=== PATIENT | male | born 1995 | race Caucasian/White ===

== ENCOUNTER 2017-11-26 14:25 | Observation (INO) | payer OTHER ==
[~2017-11-26] VITALS: Ht 185.4 cm; Wt 118.0 kg
[2017-11-26 14:26] VITALS: BP 157/90; PULSE 82; RESP 18; TEMP 98.8; O2SAT 98
[2017-11-26] MEDS ORDERED: IOHEXOL 350 MG/ML 10 ML VIAL (for RAD DIAG) IVCONTRAST ONE (14:26)
[2017-11-26 16:07] LABS: AUTOMATED NEUTROPHIL # 4.3 TH/MM3 (1.8-7.7); BASOPHIL % 0.3 % (0.0-2.0); EOSINOPHIL # 0.3 TH/MM3 (0-0.4); EOSINOPHIL % 3.6 % (0.0-4.0); HEMATOCRIT 47.6 % (39.0-51.0); HEMOGLOBIN 16.8 GM/DL (13.0-17.0); LYMPH % 31.4 % (9.0-44.0); LYMPHOCYTE # 2.5 TH/MM3 (1.0-4.8); MEAN CELL VOLUME 87.7 FL (80.0-100.0); MEAN CORPUSCULAR HGB CONC 35.3 % (32.0-36.0); MEAN PLATELET VOLUME 9.1 FL (7.0-11.0); MONO % 10.3 % (0.0-8.0); MONOCYTE # 0.8 TH/MM3 (0-0.9); NEUT % 54.4 % (16.0-70.0); PLATELET COUNT 238 TH/MM3 (150-450); RED BLOOD COUNT 5.42 MIL/MM3 (4.50-5.90); RED CELL DISTRIBUTION WIDTH 13.2 % (11.6-17.2)
[2017-11-26 16:26] LABS: ALBUMIN 4.3 GM/DL (3.4-5.0); AST (GOT) 30 U/L (15-39); BICARBONATE 25.5 MEQ/L (21.0-32.0); BLOOD UREA NITROGEN 9 MG/DL (7-18); CALCIUM 9.1 MG/DL (8.5-10.1); CHLORIDE 106 MEQ/L (98-107); CREATININE 0.72 MG/DL (0.60-1.30); GLOMERULAR FILTRATION RATE 141 ML/MIN (>89); GLUCOSE,RANDOM 83 MG/DL (74-106); SODIUM (NA) 138 MEQ/L (136-145)
[2017-11-26 16:29] LABS: ALKALINE PHOSPHATASE 74 U/L (45-117); ALT (GPT) 56 U/L (9-52); TOTAL BILIRUBIN ADULT 0.6 MG/DL (0.2-1.0); TOTAL PROTEIN 8.5 GM/DL (6.4-8.2)
[2017-11-26 16:52] VITALS: BP 128/77; PULSE 83; RESP 17; TEMP 98.6; O2SAT 100
--- NOTE | 2017-11-26 17:20 | PD ---
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 Patient states symptoms started Kvng night and have progressively worsened every day. Pain is constant. Worse with deep inspiration and when he pushes on it. Also worse with certain range of motion. No change with eating. He has not taken anything for symptoms. Patient went to his school clinic and they were concerned for appendicitis so they sent him to the ED. He denies cough, shortness of breath, chest pain, fever, chills, nausea, vomiting, or diarrhea. Denies any chronic medical conditions or daily medications. Denies excessive alcohol use. Denies urinary symptoms. No family history of inflammatory bowel disease. PFSH Past Medical History Diminished Hearing: No Tetanus Vaccination: < 5 Years ?: Not Past Surgical History Other Surgery: Yes (Gastroschisis AT ) Social History Alcohol Use: No Tobacco Use: No (OCCASIONAL CIGAR) Substance Use: No Allergies-Medications (Allergen,Severity, Reaction): Coded Allergies: No Known Allergies (Unverified , 11/26/17) Reported Meds & Prescriptions Reported Meds & Active Scripts Active No Active Prescriptions or Reported Medications Review of Systems Except as stated in HPI: all other systems reviewed are Neg Physical Exam Narrative GENERAL: Well-nourished, well-developed male in no acute distress. Afebrile. Ambulatory. SKIN: Focused skin assessment warm/dry. HEAD: Normocephalic. EYES: No scleral icterus. No injection or drainage. NECK: Supple, trachea midline. No JVD or lymphadenopathy. CARDIOVASCULAR: Regular rate and rhythm without murmurs, gallops, or rubs. RESPIRATORY: Breath sounds equal bilaterally. No accessory muscle use. GASTROINTESTINAL: Abdomen soft, nondistended. Tenderness to palpation of the right upper quadrant and epigastric region. No left or right lower quadrant tenderness. No peritoneal signs or rebound tenderness. Data Data Last Documented VS Vital Signs Date Time Temp Pulse Resp B/P (MAP) Pulse Ox O2 Delivery O2 Flow Rate FiO2 11/26/17 18:59 80 16 121/69 (86) 100 Room Air 11/26/17 16:52 98.6 Orders Orders Complete Blood Count With Diff (11/26/17 14:37) Comprehensive Metabolic Panel (11/26/17 14:37) Lipase (11/26/17 14:37) Ct Abd/Pel W Iv Contrast(Rout) (11/26/17 ) Iohexol 350 Inj (Omnipaque 350 Inj) (11/26/17 14:26) Levofloxacin 750 Mg Premix Inj (Levaquin (11/26/17 19:00) Metronidazole 500 Mg Inj (Flagyl 500 Mg (11/26/17 19:00) Consult General Surgery (11/26/17 ) Admit Order (Ed Use Only) (11/26/17 19:14) Labs Laboratory Tests Test 11/26/17 15:30 White Blood Count 8.0 TH/MM3 Red Blood Count 5.42 MIL/MM3 Hemoglobin 16.8 GM/DL Hematocrit 47.6 % Mean Corpuscular Volume 87.7 FL Mean Corpuscular Hemoglobin 31.0 PG Mean Corpuscular Hemoglobin Concent 35.3 % Red Cell Distribution Width 13.2 % Platelet Count 238 TH/MM3 Mean Platelet Volume 9.1 FL Neutrophils (%) (Auto) 54.4 % Lymphocytes (%) (Auto) 31.4 % Monocytes (%) (Auto) 10.3 % Eosinophils (%) (Auto) 3.6 % Basophils (%) (Auto) 0.3 % Neutrophils # (Auto) 4.3 TH/MM3 Lymphocytes # (Auto) 2.5 TH/MM3 Monocytes # (Auto) 0.8 TH/MM3 Eosinophils # (Auto) 0.3 TH/MM3 Basophils # (Auto) 0.0 TH/MM3 CBC Comment DIFF FINAL Differential Comment Blood Urea Nitrogen 9 MG/DL Creatinine 0.72 MG/DL Random Glucose 83 MG/DL Total Protein 8.5 GM/DL Albumin 4.3 GM/DL Calcium Level 9.1 MG/DL Alkaline Phosphatase 74 U/L Aspartate Amino Transf (AST/SGOT) 30 U/L Alanine Aminotransferase (ALT/SGPT) 56 U/L Total Bilirubin 0.6 MG/DL Sodium Level 138 MEQ/L Potassium Level 4.2 MEQ/L Chloride Level 106 MEQ/L Carbon Dioxide Level 25.5 MEQ/L Anion Gap 7 MEQ/L Estimat Glomerular Filtration Rate 141 ML/MIN Lipase 131 U/L [facility] Medical Decision Making Medical Screen Exam Complete: Yes Emergency Medical Condition: Yes Medical Record Reviewed: Yes Differential Diagnosis Cholecystitis, gallstones, hernia, pneumothorax, pancreatitis Narrative Course 21-year-old otherwise healthy male with a 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 He has no associated fever, nausea, vomiting, or diarrhea. Patient is afebrile and well-appearing in the emergency room. He had tenderness to palpation of the epigastric and right upper quadrant region. No peritoneal signs. Abdomen soft. No rebound tenderness. IV access established basic labs obtained. CBC is unremarkable. CMP is unremarkable. CT the abdomen and pelvis shows possible microperforation of the small intestine or colon. I spoke to the general surgeon, Dr. Gomez, who recommends IV Flagyl and Levaquin. He will see the patient tonight. I spoke to Dr. Yu who agrees to admit this patient to Dr. Payan's service. Patient understands and agrees to plan. Diagnosis Primary Impression: Perforated bowel Admitting Information Admitting Physician Requests: Admit Scripts No Active Prescriptions or Reported Meds Condition: Stable Rosa Hammer Nov 26, 2017 17:20
--- NOTE | 2017-11-26 18:47 | RADRPT ---
EXAM DATE/TIME: 11/26/2017 18:15 [facility] COMPARISON: No previous studies available for comparison. INDICATIONS : Right upper region abdomen pain for three days. IV CONTRAST: 76 cc Omnipaque 350 (iohexol) IV ORAL CONTRAST: No oral contrast ingested. RADIATION DOSE: 9.52 CTDIvol (mGy) MEDICAL HISTORY : None SURGICAL HISTORY : None. ENCOUNTER: Initial ACUITY: 3 days PAIN SCALE: 7/10 LOCATION: Right upper quadrant TECHNIQUE: Volumetric scanning of the abdomen and pelvis was performed. Using automated exposure control and ad justment of the mA and/or kV according to patient size, radiation dose was kept as low as reasonably achievable to obtain optimal diagnostic quality images. DICOM format image data is available electro nically for review and comparison. FINDINGS: There is some focal inflammatory changes and a small collection of fluid and free intraperitoneal air within the right upper quadrant adjacent to the edge of the liver. There are several loops of small intestine as well as what appears to be right colon/hepatic flexure in the vicinity of this fluid and air. This raises possibility of focal microperforation of small intestine or colon. Duodenal perfora tion seems less likely as the collection of air in fluid is slightly away from the duodenum. The live r is enlarged and demonstrates mild diffuse fatty infiltration. No focal hepatic mass is noted. No bi liary ductal dilatation is noted gallbladder is unremarkable. The pancreas is normal. The spleen is n ormal. The kidneys enhance briskly in dimension no evidence of focal mass or hydronephrosis. The abdo sohan aorta and inferior vena cava are unremarkable. The urinary bladder is unremarkable. No abdomina l wall hernia is noted. Mild scoliosis of the thoracolumbar spine is noted. The visualized lung bases are clear. CONCLUSION: 1. Some focal inflammatory changes and a small collection of fluid and free intraperitoneal air withi n the right upper quadrant adjacent to the edge of the liver. There are several loops of small intest ine as well as what appears to be right colon/hepatic flexure in the vicinity of this fluid and air. This raises possibility of focal microperforation of small intestine or colon. Duodenal perforation s eems less likely as the collection of air in fluid is slightly away from the duodenum. 2. Hepatomegaly and mild fatty infiltration. Stef Tyler MD on November 26, 2017 at 18:27 Board Certified Radiologist. This report was verified electronically.
[2017-11-26 18:59] VITALS: BP 121/69; PULSE 80; RESP 16; O2SAT 100
[2017-11-26] MEDS ORDERED: LEVOFLOXACIN 750 MG PREMIX INJ 150 ML IV ONE (19:00)
[2017-11-26] MEDS ORDERED: metroNIDAZOLE 500 MG INJ 100 ML IV ONE (19:00)
[2017-11-26] MEDS ORDERED: DIATRIZOATE MEGLUM/DIATRIZOATE SOD 9 ML CUP PO ONE (20:16)
[2017-11-26] MEDS ORDERED: DIATRIZOATE MEGLUM/DIATRIZOATE SOD 9 ML CUP ONE (20:19)
--- NOTE | 2017-11-26 20:25 | PD.CONS ---
HPI Service General Surgery Consult Requested By Dr. 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 Today he had an episode of generalized abdominal pain. + nausea. He denies vomiting, fever, chills. He has no chronic abdominal pain. No h/o diarrhea. No family h/o inflammatory bowel disease. He has continued eating. He was seen in wellness clinic at [facility] where he is a student and sent here for evaluation. WBC is normal. CT a/p shows probable microperforation in RUQ. I reviewed images and discussed in person with Dr. Tyler. He appears to have majority of his small bowel in right abdomen and possibly he has malrotation or this may be just secondary to his gastroschisis. Review of Systems Constitutional: DENIES: Fever, Chills Eyes: DENIES: Eye inflammation, Eye pain Respiratory: DENIES: Cough, Wheezing Cardiovascular: DENIES: Chest pain, Palpitations Gastrointestinal: COMPLAINS OF: Abdominal pain, Nausea, DENIES: Diarrhea Genitourinary: DENIES: Hematuria, Dysuria Musculoskeletal: DENIES: Back pain, Neck pain Integumentary: DENIES: Pruritus, Rash Neurologic: DENIES: Seizures, Speech Problems Past Family Social History Past Medical History Gastroschisis Past Surgical History Repair of gastroschisis Reported Medications Reported Meds & Active Scripts Active No Active Prescriptions or Reported Medications Allergies: Coded Allergies: No Known Allergies (Unverified , 11/26/17) Active Ordered Medications Current Medications Medications (Trade) Dose Ordered Sig/Mile Route Start Time Stop Time Status Last Admin Levofloxacin/ Dextrose 150 ml @ 100 mls/hr ONCE ONCE IV 11/26/17 19:00 11/26/17 20:29 Family History Noncontributory Social History Occ smokes cigars. Occ ETOH use. Physical Exam Vital Signs Vital Signs Date Time Temp Pulse Resp B/P (MAP) Pulse Ox O2 Delivery O2 Flow Rate FiO2 11/26/17 18:59 80 16 121/69 (86) 100 Room Air 11/26/17 16:52 98.6 83 17 128/77 (94) 100 Room Air 11/26/17 14:26 98.8 82 18 157/90 (112) 98 Room Air Physical Exam GENERAL: Awake and alert. No acute distress. Cooperative. HEAD: Normocephalic. Atraumatic. EYES: Pupils equal round and reactive to light bilaterally. No scleral icterus. ENT: Moist oral mucosa. NECK: Trachea midline. CHEST: Lungs clear to auscultation bilaterally with no wheezing or rhonchi. No respiratory distress. CARDIOVASCULAR: Regular rate and rhythm. ABDOMEN: Transverse scar mid abdomen. Localized moderate RUQ ttp. Otherwise soft, ntd. EXTREMITIES: No cyanosis or edema. SKIN: Warm, dry, nonjaundiced. Laboratory Laboratory Tests Test 11/26/17 15:30 White Blood Count 8.0 Red Blood Count 5.42 Hemoglobin 16.8 Hematocrit 47.6 Mean Corpuscular Volume 87.7 Mean Corpuscular Hemoglobin 31.0 Mean Corpuscular Hemoglobin Concent 35.3 Red Cell Distribution Width 13.2 Platelet Count 238 Mean Platelet Volume 9.1 Neutrophils (%) (Auto) 54.4 Lymphocytes (%) (Auto) 31.4 Monocytes (%) (Auto) 10.3 Eosinophils (%) (Auto) 3.6 Basophils (%) (Auto) 0.3 Neutrophils # (Auto) 4.3 Lymphocytes # (Auto) 2.5 Monocytes # (Auto) 0.8 Eosinophils # (Auto) 0.3 Basophils # (Auto) 0.0 CBC Comment DIFF FINAL Differential Comment Blood Urea Nitrogen 9 Creatinine 0.72 Random Glucose 83 Total Protein 8.5 Albumin 4.3 Calcium Level 9.1 Alkaline Phosphatase 74 Aspartate Amino Transf (AST/SGOT) 30 Alanine Aminotransferase (ALT/SGPT) 56 Total Bilirubin 0.6 Sodium Level 138 Potassium Level 4.2 Chloride Level 106 Carbon Dioxide Level 25.5 Anion Gap 7 Estimat Glomerular Filtration Rate 141 Lipase 131 Result Diagram: 11/26/17 1530 11/26/17 1530 Imaging Last Impressions Abdomen/Pelvis CT 11/26/17 0000 Signed Impressions: Service Date/Time: Sunday, November 26, 2017 18:15 - CONCLUSION: 1. Some focal inflammatory changes and a small collection of fluid and free intraperitoneal air within the right upper quadrant adjacent to the edge of the liver. There are several loops of small intestine as well as what appears to be right colon/hepatic flexure in the vicinity of this fluid and air. This raises possibility of focal microperforation of small intestine or colon. Duodenal perforation seems less likely as the collection of air in fluid is slightly away from the duodenum. 2. Hepatomegaly and mild fatty infiltration. Stef Tyler MD Assessment and Plan Assessment and Plan 21 yo M h/o gastroschisis with ? microperforation in right upper abdomen. Etiology is not clear. He is very stable and WBC is normal. Will check CT a/p with ORAL contrast to further evaluate. Recommend levaquin/flagyl. Further recommendations depending on the above and on his clinical course. JasonJohn MD Nov 26, 2017 20:25
--- NOTE | 2017-11-26 20:54 | HHI.HP ---
HPI Service Family Medicine Primary Care Physician No Primary Care Physician Admission Diagnosis perforated bowel Diagnoses: International Travel<30 Days: No Contact w/Intl Traveler<30days: No Known Affected Area: No History of Present Illness 21 y/o M, hx of gastroschisis this with repair as , presents with mild abdominal pain beginning Friday night in [facility]. He originally thought he tore a muscle as it got worse on Friday, then woke up this morning with tenderness all over his abdomen. He has abdominal pain with inspiration. It is a constant 5 /10 pain but can be worsened by movements that move the right side of his abdomen (for example, sleeping on right side or twisting to the right side). He was able to eat and drink without difficulty. Denies any N/V. Denies any constipation/diarrhea with last BM last night. He got concerned he had appendicitis and came to the ER. Denies any CP. Denies any dizzyness/confusion. Review of Systems Constitutional: DENIES: Fever, Weight loss Endocrine: DENIES: Polyuria Eyes: DENIES: Vision loss, Double Vision Ears, nose, mouth, throat: DENIES: Nasal discharge, Oral lesions Respiratory: DENIES: Cough, Snoring Cardiovascular: DENIES: Lower Extremity Edema, Orthopnea Gastrointestinal: DENIES: Constipation, Diarrhea Genitourinary: DENIES: Urinary frequency, Urinary incontinence Musculoskeletal: DENIES: Back pain Integumentary: DENIES: Rash Neurologic: DENIES: Headache Psychiatric: DENIES: Confusion, Mood changes Past Family Social History Past Medical History gastroschisis as baby Past Surgical History Gastroschises repair as Allergies: Coded Allergies: No Known Allergies (Unverified , 11/26/17) Family History grandfather: diverticulitis Social History lives on campus at [employer], studying [employer], sophomore year occasional cigar, non-cigarette smoker, occassional drinker, no drug use Physical Exam Vital Signs Vital Signs Date Time Temp Pulse Resp B/P (MAP) Pulse Ox O2 Delivery O2 Flow Rate FiO2 11/26/17 18:59 80 16 121/69 (86) 100 Room Air 11/26/17 16:52 98.6 83 17 128/77 (94) 100 Room Air 11/26/17 14:26 98.8 82 18 157/90 (112) 98 Room Air Physical Exam GENERAL: This is a well-nourished, well-developed patient, in no apparent distress. Talkative and not in any acute pain SKIN: No rashes, ecchymoses or lesions. Cool and dry. HEAD: Atraumatic. Normocephalic. No temporal or scalp tenderness. EYES: Pupils equal round and reactive. Extraocular motions intact. No scleral icterus. No injection or drainage. ENT: Nose without bleeding, purulent drainage or septal hematoma. Throat without erythema, tonsillar hypertrophy or exudate. Uvula midline. Airway patent. NECK: Trachea midline. No JVD or lymphadenopathy. Supple, nontender, no meningeal signs. CARDIOVASCULAR: Regular rate and rhythm without murmurs, gallops, or rubs. RESPIRATORY: Clear to auscultation. Breath sounds equal bilaterally. No wheezes , rales, or rhonchi. GASTROINTESTINAL: Abdomen soft, non-tender, nondistended. No hepato-splenomegaly , or palpable masses. No guarding. Mild tenderness to palpation in substernal region, no tenderness to deep palpation of right upper quadrant or any other quadrant MUSCULOSKELETAL: Extremities without clubbing, cyanosis, or edema. No joint tenderness, effusion, or edema noted. No calf tenderness. Negative Homans sign bilaterally. NEUROLOGICAL: Awake and alert. Cranial nerves II through XII intact. Motor and sensory grossly within normal limits. Five out of 5 muscle strength in all muscle groups. Normal speech. Laboratory Laboratory Tests Test 11/26/17 15:30 White Blood Count 8.0 Red Blood Count 5.42 Hemoglobin 16.8 Hematocrit 47.6 Mean Corpuscular Volume 87.7 Mean Corpuscular Hemoglobin 31.0 Mean Corpuscular Hemoglobin Concent 35.3 Red Cell Distribution Width 13.2 Platelet Count 238 Mean Platelet Volume 9.1 Neutrophils (%) (Auto) 54.4 Lymphocytes (%) (Auto) 31.4 Monocytes (%) (Auto) 10.3 Eosinophils (%) (Auto) 3.6 Basophils (%) (Auto) 0.3 Neutrophils # (Auto) 4.3 Lymphocytes # (Auto) 2.5 Monocytes # (Auto) 0.8 Eosinophils # (Auto) 0.3 Basophils # (Auto) 0.0 CBC Comment DIFF FINAL Differential Comment Blood Urea Nitrogen 9 Creatinine 0.72 Random Glucose 83 Total Protein 8.5 Albumin 4.3 Calcium Level 9.1 Alkaline Phosphatase 74 Aspartate Amino Transf (AST/SGOT) 30 Alanine Aminotransferase (ALT/SGPT) 56 Total Bilirubin 0.6 Sodium Level 138 Potassium Level 4.2 Chloride Level 106 Carbon Dioxide Level 25.5 Anion Gap 7 Estimat Glomerular Filtration Rate 141 Lipase 131 Result Diagram: 11/26/170 11/26/17 1530 Septic Shock Reassessment Septic shock perfusion: reassessment completed Caprini VTE Risk Assessment Caprini VTE Risk Assessment: No/Low Risk (score <= 1) Caprini Risk Assessment Model Point Value = 1 Point Value = 2 Point Value = 3 Point Value = 5 Age 41-60 Minor surgery BMI > 25 kg/m2 Swollen legs Varicose veins or History of unexplained or recurrent spontaneous Oral contraceptives or hormone replacement Sepsis (< 1 month) Serious lung disease, including pneumonia (< 1 month) Abnormal pulmonary function Acute myocardial infarction Congestive heart failure (< 1 month) History of inflammatory bowel disease Medical patient at bed rest Age 61-74 Arthroscopic surgery Major open surgery (> 45 min) Laparoscopic surgery (> 45 min) Malignancy Confined to bed (> 72 hours) Immobilizing plaster cast Central venous access Age >= 75 History of VTE Family history of VTE Factor V Leiden Prothrombin [id number] Lupus anticoagulant Anticardiolipin antibodies Elevated serum homocysteine Heparin-induced thrombocytopenia Other congenital or acquired thrombophilia Stroke (< 1 month) Elective arthroplasty Hip, pelvis, or leg fracture Acute spinal cord injury (< 1 month) Prophylaxis Regimen Total Risk Factor Score Risk Level Prophylaxis Regimen 0-1 Low Early ambulation 2 Moderate Order ONE of the following: *Sequential Compression Device (SCD) *Heparin 5000 units SQ BID 3-4 Higher Order ONE of the following medications: *Heparin 5000 units SQ TID *Enoxaparin/Lovenox 40 mg SQ daily (WT < 150 kg, CrCl > 30 mL/min) *Enoxaparin/Lovenox 30 mg SQ daily (WT < 150 kg, CrCl > 10-29 mL/min) *Enoxaparin/Lovenox 30 mg SQ BID (WT < 150 kg, CrCl > 30 mL/min) AND/OR *Sequential Compression Device (SCD) 5 or more Highest Order ONE of the following medications: *Heparin 5000 units SQ TID (Preferred with Epidurals) *Enoxaparin/Lovenox 40 mg SQ daily (WT < 150 kg, CrCl > 30 mL/min) *Enoxaparin/Lovenox 30 mg SQ daily (WT < 150 kg, CrCl > 10-29 mL/min) *Enoxaparin/Lovenox 30 mg SQ BID (WT < 150 kg, CrCl > 30 mL/min) AND *Sequential Compression Device (SCD) Assessment and Plan Assessment and Plan 21-year-old male, presents with right upper quadrant pain since Friday and CT scan shows probable microperforation of bowel. Code Status Full code Discussed Condition With Dr. Payan Problem List: (1) Perforated bowel ICD Codes: K63.1 - Perforation of intestine (nontraumatic) Status: Acute Plan: CT shows probable microperforation right upper quadrant Follow-up recommendations of Gen. surgery consult - Patient stable and CBC is normal - Follow-up CT with oral contrast x 2 (next in AM) - Continue Levaquin and Flagyl CT #1: Small collection of fluid and free intraperitoneal air and right upper quadrant adjacent to edge of liver, several loops of small intestine in the fluid and air. Possible focal microperforation small intestine or:, Hepatomegaly and mild fatty infiltration CT #2: Bowel loops do not appear to demonstrate focal leak, large and possible small bowel noted within the right abdomen. Leak is possibly related to one of the loops. Follow-up with delayed scan in the morning. 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 Nutrition: Regular diet DVT prophylaxis: SCDs Physician Certification 2 Midnight Certification Type: Admission for Inpatient Services Order for Inpatient Services The services are ordered in accordance with Medicare regulations or non- Medicare payer requirements, as applicable. In the case of services not specified as inpatient-only, they are appropriately provided as inpatient services in accordance with the 2-midnight benchmark. Estimated LOS (days): 2 days is the estimated time the patient will need to remain in the hospital, assuming treatment plan goals are met and no additional complications. Post-Hospital Plan: Home Roseline Yu MD R2 Nov 26, 2017 20:54
[2017-11-26 21:00] VITALS: BP 133/79; PULSE 88; RESP 16; O2SAT 97
[2017-11-26] MEDS ORDERED: BISACODYL 10 MG SUPP RECTAL PRN (21:45)
[2017-11-26] MEDS ORDERED: SODIUM CHLORIDE 0.9% FLUSH 10 ML FLUSH IV FLUSH PRN (21:45)
[2017-11-26] MEDS ORDERED: SENNOSIDES 8.6 MG TAB PO PRN (21:45)
[2017-11-26] MEDS ORDERED: ACETAMINOPHEN 325 MG TAB PO PRN (21:45)
[2017-11-26] MEDS ORDERED: LACTULOSE SYRUP 20 GM/30 ML CUP PO PRN (21:45)
[2017-11-26] MEDS ORDERED: MAGNESIUM HYDROXIDE SUSP 30 ML CUP PO PRN (21:45)
[2017-11-26] MEDS ORDERED: NALOXONE HCL 0.4 MG/ML AMP IV PUSH PRN (21:45)
[2017-11-26] MEDS ORDERED: ONDANSETRON HCL 4 MG/2 ML VIAL IVP PRN (21:45)
[2017-11-26] MEDS ORDERED: ZOLPIDEM TARTRATE 5 MG TAB PO PRN (21:45)
[2017-11-26 22:31] LABS: BACTERIA, URINE RARE /hpf; BILIRUBIN, URINE NEG (NEG); BLOOD, URINE NEG (NEG); GLUCOSE,URINE 300 mg/dL (NEG); KETONE, URINE NEG (NEG); MUCUS URINE FEW /lpf (OCC); NITRITE,URINE NEG (NEG); PH, URINE 5.5 (5.0-8.5); SQUAMOUS EPITHELIAL CELL URINE <1 /hpf (0-5); URINE COLOR YELLOW (YELLW/STRAW); URINE LEUKOCYTE ESTERASE NEG (NEG)
--- NOTE | 2017-11-26 22:41 | RADRPT ---
EXAM DATE/TIME: 11/26/2017 22:00 [facility] COMPARISON: No previous studies available for comparison. INDICATIONS : Shortness of breath. MEDICAL HISTORY : None. SURGICAL HISTORY : None. ENCOUNTER: Initial ACUITY: 1 day PAIN SCORE: Non-responsive. LOCATION: chest FINDINGS: PA and lateral views of the chest demonstrate the lungs to be symmetrically aerated without evidence of mass, infiltrate or effusion. The cardiomediastinal contours are unremarkable. Osseous structure s are intact. CONCLUSION: No acute disease. Stef Tyler MD on November 26, 2017 at 22:38 Board Certified Radiologist. This report was verified electronically.
--- NOTE | 2017-11-26 22:52 | RADRPT ---
EXAM DATE/TIME: 11/26/2017 22:06 [facility] COMPARISON: No previous studies available for comparison. INDICATIONS : Evaluate for perforated bowel. ORAL CONTRAST: Prescribed oral contrast ingested. RADIATION DOSE: 10.09 CTDIvol (mGy) MEDICAL HISTORY : None SURGICAL HISTORY : None. ENCOUNTER: Initial ACUITY: 3 days PAIN SCALE: 7/10 LOCATION: Right upper quadrant TECHNIQUE: Volumetric scanning of the abdomen and pelvis was performed. Using automated exposure control and ad justment of the mA and/or kV according to patient size, radiation dose was kept as low as reasonably achievable to obtain optimal diagnostic quality images. DICOM format image data is available electro nically for review and comparison. FINDINGS: Repeat scan with oral contrast administration was performed an attempt to determine the site of possi ble microperforation in the right upper quadrant. 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 The ileocecal valve appears to be located within the left lower quadrant. These small area of focal inflammatory change and fluid is still not ed within the right upper quadrant and there are unopacified loops of bowel within the right abdomen. The majority of the small bowel loops are opacified and do not appear to demonstrate focal leak. Aga in, a clump of unopacified loops of probable large and possible small bowel are noted within the righ t abdomen. Although the site of microperforation is not confirmed with certainty on the basis of this examination is felt that the leak is possibly related to one of the unopacified loops within the rig ht abdomen. The findings were discussed with Dr. Gomez at 10:45 PM on 11/26/17. If the patient is clini pamela stable, another followup delayed scan could be performed in the morning with improved opacifica tion of the right abdominal loops with possible determination of the site of the abnormality. CONCLUSION: 1. Small area of focal inflammatory change and fluid is still noted within the right upper quadrant a nd there are unopacified loops of bowel within the right abdomen. The majority of the small bowel loo ps are opacified and do not appear to demonstrate focal leak. Again, a clump of unopacified loops of probable large and possible small bowel are noted within the right abdomen. Although the site of micr operforation is not confirmed with certainty on the basis of this examination is felt that the leak i s possibly related to one of the unopacified loops within the right abdomen. The findings were discus sed with Dr. Gomez at 10: 2. 45 PM on 11/26/17. If the patient is clinically stable, another followup delayed scan could be perf ormed in the morning with improved opacification of the right abdominal loops with possible determina tion of the site of the abnormality. 3. 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 Stef Tyler MD on November 26, 2017 at 22:43 Board Certified Radiologist. This report was verified electronically.
[2017-11-26 23:04] VITALS: BP 128/74
[2017-11-26] MEDS: SODIUM CHLOR 0.9% 1000 ML INJ 1,000 ML IV SCH (23:31)
[2017-11-27] MEDS: metroNIDAZOLE 500 MG INJ 100 ML IV SCH ×2 (03:46→09:25)
[2017-11-27 04:27] LABS: BASOPHIL % 0.2 % (0.0-2.0); EOSINOPHIL # 0.3 TH/MM3 (0-0.4); EOSINOPHIL % 3.8 % (0.0-4.0); HEMATOCRIT 42.8 % (39.0-51.0); HEMOGLOBIN 15.4 GM/DL (13.0-17.0); LYMPH % 32.8 % (9.0-44.0); LYMPHOCYTE # 2.5 TH/MM3 (1.0-4.8); MEAN CELL VOLUME 88.1 FL (80.0-100.0); MEAN CORPUSCULAR HEMOGLOBIN 31.7 PG (27.0-34.0); MEAN PLATELET VOLUME 8.5 FL (7.0-11.0); MONOCYTE # 0.8 TH/MM3 (0-0.9); NEUT % 52.2 % (16.0-70.0); PLATELET COUNT 204 TH/MM3 (150-450); RED BLOOD COUNT 4.86 MIL/MM3 (4.50-5.90); RED CELL DISTRIBUTION WIDTH 12.8 % (11.6-17.2); WHITE BLOOD COUNT 7.6 TH/MM3 (4.0-11.0)
[2017-11-27 04:34] LABS: INTERNATIONAL NORMALIZED RATIO 1.1 RATIO; PROTHROMBIN TIME - PATIENT 11.5 SEC (9.8-11.6)
[2017-11-27 04:59] VITALS: BP 111/53; PULSE 62; RESP 18; TEMP 97.8; O2SAT 98
[2017-11-27] MEDS: SODIUM CHLOR 0.9% 1000 ML INJ 1,000 ML IV SCH (05:23)
[2017-11-27 05:26] LABS: ALBUMIN 3.5 GM/DL (3.4-5.0); ALKALINE PHOSPHATASE 65 U/L (45-117); ALT (GPT) 47 U/L (9-52); AST (GOT) 22 U/L (15-39); BLOOD UREA NITROGEN 8 MG/DL (7-18); CALCIUM 8.4 MG/DL (8.5-10.1); CHLORIDE 105 MEQ/L (98-107); CREATININE 0.69 MG/DL (0.60-1.30); GLOMERULAR FILTRATION RATE 148 ML/MIN (>89); GLUCOSE,RANDOM 86 MG/DL (74-106); SODIUM (NA) 140 MEQ/L (136-145); TOTAL BILIRUBIN ADULT 0.8 MG/DL (0.2-1.0); TOTAL PROTEIN 7.2 GM/DL (6.4-8.2)
--- NOTE | 2017-11-27 06:45 | RADRPT ---
EXAM DATE/TIME: 11/27/2017 06:15 [facility] COMPARISON: No previous studies available for comparison. INDICATIONS : Abdomen pain, evaluate for possible perforation. ORAL CONTRAST: Prescribed oral contrast ingested. RADIATION DOSE: 16.39 CTDIvol (mGy) MEDICAL HISTORY : None SURGICAL HISTORY : None. ENCOUNTER: Initial ACUITY: 2 days PAIN SCALE: 5/10 LOCATION: Right upper quadrant TECHNIQUE: Volumetric scanning of the abdomen and pelvis was performed. Using automated exposure control and ad justment of the mA and/or kV according to patient size, radiation dose was kept as low as reasonably achievable to obtain optimal diagnostic quality images. DICOM format image data is available electro nically for review and comparison. FINDINGS: Lung bases demonstrate minimal dependent atelectasis. No acute findings in the liver, spleen, adrenal s, kidneys or pancreas. There is vicarious excretion of contrast in gallbladder. No evidence for free air or bowel perforation on this examination. Malrotation is present. No bowel c ontrast within the peritoneal space. Contrast seen to the level of the left colon. There some strandi ng of fat near the anterior portion of the gallbladder which is stable. No pelvic masses or adenopathy. No acute bony abnormalities. CONCLUSION: 1. No evidence for bowel perforation or leakage of contrast on the current exam. No free air. 2. Malrotation. Mild fatty liver. 3. Stable stranding of some fat in the right upper quadrant near the gallbladder. This could indicate mild inflammatory change. Joshua Duarte MD on November 27, 2017 at 6:38 Board Certified Radiologist. This report was verified electronically.
[2017-11-27 08:07] VITALS: BP 130/74; PULSE 68; RESP 21; TEMP 98.1; O2SAT 98
--- NOTE | 2017-11-27 08:12 | EKG ---
Date Performed: 11/26/2017 Time Performed: 22:20:04 PTAGE: 21 years EKG: Sinus rhythm ST ELEVATION, PROBABLY EARLY REPOLARIZATION BORDERLINE ECG NO PREVIOUS TRACING DOCTOR: Robin Segal Interpretating Date/Time 11/27/2017 08:12:08
[2017-11-27 08:40] LABS: BANDS 1 % (0-6); LYMPHOCYTES 26 % (9-44); MONOCYTES 9 % (0-8); MYELOCYTES 2 % (0-0); NEUTROPHIL # MANUAL DIFF 4.6 TH/MM3 (1.8-7.7); POLYS (SEG NEUTROPHILS) 57 % (16-70)
--- NOTE | 2017-11-27 08:50 | HHI.FPPN ---
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 Work up with CT scan revealed possible microperforation.For further details, please see resident H&P. Overnight, pain remained fairly well controlled. This morning, pt reports pain is present but much improved. He feels hungry and ready to eat. Last BM was yesterday, which is described as normal. ROS: + abdominal pain (improving), No nausea, no vomiting. No diarrhea, no constipation. No fevers. All other systems reviewed are negative. PMH/PSxH/SocHx/FamHx: Per resident H&P. Significant for: gastroschisis as an infant with subsequent repair. Grandfather with diverticulitis. Attends [employer], lives [place] campus. Occasional cigar, occasional alcohol. No recreational drug use. Objective Vitals Vital Signs Date Time Temp Pulse Resp B/P (MAP) Pulse Ox O2 Delivery O2 Flow Rate FiO2 11/27/17 08:07 98.1 68 21 130/74 (92) 98 11/27/17 04:59 97.8 62 18 111/53 (72) 98 11/27/17 02:31 21 11/26/17 23:04 74 16 128/74 (92) 97 11/26/17 21:00 88 16 133/79 (97) 97 Room Air 11/26/17 18:59 80 16 121/69 (86) 100 Room Air 11/26/17 16:52 98.6 83 17 128/77 (94) 100 Room Air 11/26/17 14:26 98.8 82 18 157/90 (112) 98 Room Air I/O 11/26/17 11/26/17 11/26/17 11/27/17 11/27/17 11/27/17 07:00 15:00 23:00 07:00 15:00 23:00 Intake Total 250 ml Balance 250 ml Intake IV Total 250 ml # Voids 2 Result Diagram: 11/27/1740111/27/17401 Objective Remarks GENERAL: in NAD, no resp distress, nontoxic. Lying comfortably in bed. HEENT: NCAT, EOMI, no scleral icterus, no conjunctival injection. MMM. NECK: Supple, no meningeal signs. CV: RRR, S1 S2. No murmurs. CHEST/PULM: CTAB, no crackles, no wheezes. ABD/GI: +BS, soft, nondistended. Mild tenderness to palpation at epigastrium and RUQ. No rebound, no guarding. : No CVAT. EXT: 2+ DP pulses. No edema. No calf tenderness. NEURO: Awake, alert. Normal muscle tone. Grossly nonfocal. SKIN: No rash, no jaundice. PSYCH: Mood and affect are appropriate. Speech fluent. A/P Assessment and Plan 21-year-old male, presents with right upper quadrant pain since Friday and CT scan shows probable microperforation of bowel. Discharge Planning Discharge home today. Attending Attestation Patient seen, examined, and discussed with resident team. Problem List: (1) Mesenteric adenitis ICD Codes: I88.0 - Nonspecific mesenteric lymphadenitis Status: Acute Plan: Repeat CT this morning is reassuring and without evidence of perforation. Pain is improving. Appreciate Dr. Gomez, General Surgery. Discharge home with PPI, valerie diaz. Mona Payan MD Nov 27, 2017 08:50
[2017-11-27] MEDS ORDERED: SODIUM CHLORIDE 0.9% FLUSH 10 ML FLUSH IV FLUSH SCH (09:00)
[2017-11-27] MEDS ORDERED: DOCUSATE SODIUM 50 MG/SENNA 8.6 MG TAB PO SCH (09:00)
[2017-11-27] MEDS ORDERED: LEVO750T3 PO (09:49)
[2017-11-27] MEDS ORDERED: METR1TAB76 PO (09:49)
--- NOTE | 2017-11-27 09:54 | HHI.PR ---
Subjective Subjective Notes Pain is stable. He ate breakfast this am with some mild pain during. WBC nml. Objective Vitals/I&O Vital Signs Date Time Temp Pulse Resp B/P (MAP) Pulse Ox O2 Delivery O2 Flow Rate FiO2 11/27/17 08:07 98.1 68 21 130/74 (92) 98 11/27/17 02:31 21 11/26/17 21:00 Room Air Labs Laboratory Tests Test 11/26/17 15:30 11/26/17 16:54 11/26/17 22:15 11/27/17 04:02 White Blood Count 8.0 7.6 Red Blood Count 5.42 4.86 Hemoglobin 16.8 15.4 Hematocrit 47.6 42.8 Mean Corpuscular Volume 87.7 88.1 Mean Corpuscular Hemoglobin 31.0 31.7 Mean Corpuscular Hemoglobin Concent 35.3 36.0 Red Cell Distribution Width 13.2 12.8 Platelet Count 238 204 Mean Platelet Volume 9.1 8.5 Neutrophils (%) (Auto) 54.4 52.2 Lymphocytes (%) (Auto) 31.4 32.8 Monocytes (%) (Auto) 10.3 11.0 Eosinophils (%) (Auto) 3.6 3.8 Basophils (%) (Auto) 0.3 0.2 Neutrophils # (Auto) 4.3 4.0 Lymphocytes # (Auto) 2.5 2.5 Monocytes # (Auto) 0.8 0.8 Eosinophils # (Auto) 0.3 0.3 Basophils # (Auto) 0.0 0.0 CBC Comment DIFF FINAL AUTO DIFF Differential Comment FINAL DIFF MANUAL Blood Urea Nitrogen 9 8 Creatinine 0.72 0.69 Random Glucose 83 86 Total Protein 8.5 7.2 Albumin 4.3 3.5 Calcium Level 9.1 8.4 Alkaline Phosphatase 74 65 Aspartate Amino Transf (AST/SGOT) 30 22 Alanine Aminotransferase (ALT/SGPT) 56 47 Total Bilirubin 0.6 0.8 Sodium Level 138 140 Potassium Level 4.2 4.0 Chloride Level 106 105 Carbon Dioxide Level 25.5 31.0 Anion Gap 7 4 Estimat Glomerular Filtration Rate 141 148 Lipase 131 82 Urine Color YELLOW Urine Turbidity CLEAR Urine pH 5.5 Urine Specific [place] 1.025 Urine Protein TRACE Urine Glucose (UA) 300 Urine Ketones NEG Urine Occult Blood NEG Urine Nitrite NEG Urine Bilirubin NEG Urine Urobilinogen LESS THAN 2.0 Urine Leukocyte Esterase NEG Urine RBC LESS THAN 1 Urine WBC LESS THAN 1 Urine Squamous Epithelial Cells <1 Urine Bacteria RARE Urine Mucus FEW Microscopic Urinalysis Comment CULT NOT INDICATED Urine Opiates Screen NEG Urine Barbiturates Screen NEG Urine Amphetamines Screen NEG Urine Benzodiazepines Screen NEG Urine Cocaine Screen NEG Urine Cannabinoids Screen NEG Troponin I LESS THAN 0.02 LESS THAN 0.02 Differential Total Cells Counted 100 Neutrophils % (Manual) 57 Band Neutrophils % 1 Lymphocytes % 26 Monocytes % 9 Eosinophils % 5 Neutrophils # (Manual) 4.6 Myelocytes 2 Platelet Estimate NORMAL Platelet Morphology Comment NORMAL Prothrombin Time 11.5 Prothromb Time International Ratio 1.1 Radiology Last Impressions Abdomen/Pelvis CT 11/26/17 0000 Signed Impressions: Service Date/Time: Sunday, November 26, 2017 18:15 - CONCLUSION: 1. Some focal inflammatory changes and a small collection of fluid and free intraperitoneal air within the right upper quadrant adjacent to the edge of the liver. There are several loops of small intestine as well as what appears to be right colon/hepatic flexure in the vicinity of this fluid and air. This raises possibility of focal microperforation of small intestine or colon. Duodenal perforation seems less likely as the collection of air in fluid is slightly away from the duodenum. 2. Hepatomegaly and mild fatty infiltration. Stef Tyler MD Narrative Exam NAD Localized RUQ ttp, no rebound or guarding, soft A/P Assessment and Plan 21 yo M with history of gastroschisis with RUQ pain. Initial imaging without oral contrast showed concern for localized perforation. On further imaging with PO contrast he is incidentally noted to have malrotation. He has multiple visible lymph nodes throughout mesentery and small area of inflammation in RUQ. No evidence of perforation and WBC continues to be normal. Imaging reviewed this am with Dr. Ramirez. Likely benign inflammatory process such as appendicitis epiploica or mesenteric adenitis. Ok for d/c home from my standpoint after lunch if tolerating well. Rx for 5 days levaquin/flagyl on chart. Use NSAIDS for pain as needed. F/u with me in one week. John Gomez MD Nov 27, 2017 09:54
--- NOTE | 2017-11-27 10:22 | HHI.DCPOC ---
Discharge Care Plan Diagnosis: (1) Mesenteric adenitis Goals to Promote Your Health * To prevent worsening of your condition and complications * To maintain your health at the optimal level Directions to Meet Your Goals Take your medications as prescribed Follow your dietary instruction Follow activity as directed Keep your appointments as scheduled Take your immunizations and boosters as scheduled If your symptoms worsen call your PCP, if no PCP go to Urgent Care Center or Emergency Room Smoking is Dangerous to Your Health. Avoid second hand smoke Call the 24-hour hour crisis hotline for domestic abuse at Tabitha Landeros MD, R3 Nov 27, 2017 10:22
[2017-11-27] MEDS ORDERED: PROT40TA PO (10:45)
[2017-11-27 11:53] VITALS: O2SAT 98
[2017-11-27 12:22] VITALS: BP 130/61; PULSE 70; RESP 21; TEMP 98.7; O2SAT 95
[2017-11-27] MEDS ORDERED: LEVOFLOXACIN 750 MG PREMIX INJ 150 ML IV SCH (20:00)
== END 2017-11-27 14:35 | disposition home or self-care (01) ==
LOC: NEPC 14:25 → UNDOADMIN 19:17 → NEDA 19:17 → INTOOBSV 21:52 → NEPHCDU 23:24
PROVIDERS: ADMIT Family Medicine; ATTEND Family Medicine
DX: I88.0 Nonspecific mesenteric lymphadenitis (principal); Q43.3 Congenital malformations of intestinal fixation; R10.11 Right upper quadrant pain; R06.02 Shortness of breath; K76.0 Fatty (change of) liver, not elsewhere classified; Z72.0 Tobacco use; Z87.738 Personal history of other specified (corrected) congenital malformations of digestive system
CPT/HCPCS: 71046; 74176; 74177; 80053; 80307; 81001; 82948; 83690; 84484; 85007; 85025; 85027; 85610; 93005; 96361; 96365; 96366; 96376; 99285; G0378; J1956; J7030; Q9967; Q9963